=== PATIENT | male | born 1990 | race Caucasian/White ===

== ENCOUNTER 2016-10-29 17:58 | Emergency (ER) | payer SELFPAY ==
[2016-10-29 18:09] VITALS: BP 119/74
[2016-10-29] MEDS ORDERED: Metoclopramide 10 MG/2 ML SDV IVPUSH ONE (18:09)
[2016-10-29] MEDS ORDERED: HYDROmorphone 0.5 MG/0.5 ML Syringe IVPUSH ONE (18:09)
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
[2016-10-29] MEDS ORDERED: Sodium Chloride 0.9% 1,000 ML IV SCH (18:15)
--- NOTE | 2016-10-30 11:45 | CR ---
Left shoulder: Three views of the left shoulder were obtained. Comparison: No previous study. Distal clavicle is mildly elevated felt compatible with mild acromioclavicular separation. Glenohumeral joint is unremarkable. No acute fracture or other bony abnormality is seen. Impression: 1. Mild acromioclavicular separation. Diagnostic code #3
--- NOTE | 2016-10-30 11:45 | CR ---
Acromioclavicular joints: AP view of both acromioclavicular joints were obtained with and without weights. Acromioclavicular separation is seen on the left side. Right acromioclavicular joint is unremarkable. No fracture or other bony abnormality is seen. Impression: 1. Left acromioclavicular separation. Diagnostic code #3
== END 2016-10-29 19:40 | disposition home or self-care (01) ==
LOC: JD.ED 17:58
DX: S43.102A Unspecified dislocation of left acromioclavicular joint, initial encounter (principal); V86.59XA Driver of other special all-terrain or other off-road motor vehicle injured in nontraffic accident, initial encounter
CPT/HCPCS: 73030; 73050; 96361; 96374; 96375; 99284; J1170; J2765; J7040

== ENCOUNTER 2019-07-10 17:31 | Emergency (ER) | payer SELFPAY ==
[2019-07-10 17:49] VITALS: BP 128/95; PULSE 70
--- NOTE | 2019-07-10 17:59 | EDM.PDOC ---
ED HPI GENERAL MEDICAL PROBLEM - General Chief Complaint: Genitourinary Problem Stated Complaint: L TESTICLE PAIN Time Seen by Provider: 07/10/19 17:43 Source of Information: Reports: Patient History Limitations: Reports: No Limitations - History of Present Illness INITIAL COMMENTS - FREE TEXT/NARRATIVE: The patient presents with left testicle pain. He woke up with the pain this morning. He says the pain comes and goes with movement. He has not noticed any swelling. He has no fever or chills. He has no abdominal pain. He has no dysuria. He is sexually active and does not use protection. He did not notice any rashes. Onset: Gradual Duration: Hour(s): Location: Reports: Other (Left testicle) Quality: Reports: Sharp Severity: Moderate Improves with: Reports: None Worsens with: Reports: None Associated Symptoms: Reports: No Other Symptoms Left Pain Score (Numeric/FACES): 5 - Related Data Allergies Allergy/AdvReac Type Severity Reaction Status Date / Time No Known Allergies Allergy Verified 10/29/16 18:09 Home Meds: Home Meds . [No Known Home Meds] 07/10/19 [History] Past Medical History - Past Health History Medical/Surgical History: Denies Medical/Surgical History Social & Family History - Tobacco Use Smoking Status *Q: Current Every Day Smoker Years of Tobacco use: 5 Packs/Tins Daily: 0.1 - Caffeine Use Caffeine Use: Reports: None - Living Situation & Occupation Occupation: Employed ED ROS GENERAL - Review of Systems Review Of Systems: See Below Constitutional: Reports: No Symptoms HEENT: Reports: No Symptoms Respiratory: Reports: No Symptoms Cardiovascular: Reports: No Symptoms Endocrine: Reports: No Symptoms GI/Abdominal: Reports: No Symptoms : Reports: Other (Left testicle pain) Musculoskeletal: Reports: No Symptoms Skin: Reports: No Symptoms ED EXAM, GI/ABD - Physical Exam Exam: See Below Exam Limited By: No Limitations General Appearance: Alert, No Apparent Distress Ears: Normal External Exam Nose: Normal Inspection Head: Atraumatic, Normocephalic Neck: Normal Inspection Respiratory/Chest: No Respiratory Distress, Lungs Clear, Normal Breath Sounds Cardiovascular: Regular Rate, Rhythm, No Edema, No Murmur GI/Abdominal Exam: Soft, Non-Tender, No Organomegaly, No Mass (Male) Exam: Other (No swelling noted. He is uncircomcised. He has no rashes or lymphadenopathy. No hernias detected. He does have pain to his left testicle.) Back Exam: Normal Inspection Course - Vital Signs Last Recorded V/S: Last Vital Signs Temp 99.1 F 07/10/19 17:42 Pulse 70 07/10/19 17:42 Resp 18 07/10/19 17:42 BP 128/95 H 07/10/19 17:42 Pulse Ox 98 07/10/19 17:42 - Orders/Labs/Meds Orders: Active Orders 24 hr Category Date Time Status GC/CHLAMYDIA BY PCR [MOLEC] Stat Lab 07/10/19 18:38 Received RAPID PLASMA REAGIN,RPR [CHEM] Stat Lab 07/10/19 17:57 Received Labs: Laboratory Tests 07/10/19 Range/Units 18:38 Urine Color Yellow (Yellow) Urine Appearance Slt cloudy H (Clear) Urine pH 7.0 (5.0-8.0) Ur Specific [place] 1.025 (1.005-1.030) Urine Protein Negative (Negative) Urine Glucose (UA) Negative (Negative) Urine Ketones Negative (Negative) Urine Occult Blood Negative (Negative) Urine Nitrite Negative (Negative) Urine Bilirubin Negative (Negative) Urine Urobilinogen 0.2 (0.2-1.0) Ur Leukocyte Esterase Negative (Negative) - Re-Assessments/Exams Free Text/Narrative Re-Assessment/Exam: 07/10/19 17:59 I ordered an US, UA, GC/chlamydia and RPR. 07/10/19 19:19 His US shows blood vessels on the left side which are felt compatible with early varicocele. No additional abnormality is identified on testicular US exam. His UA shows no UTI. I will discharge him home on tylenol and motrin and some ice and follow up with Dr Joseph as needed. I will follow up with his other labs. Departure - Departure Time of Disposition: 19:25 Disposition: Home, Self-Care 01 Condition: Good Clinical Impression: Left varicocele - Discharge Information *PRESCRIPTION DRUG MONITORING PROGRAM REVIEWED*: Not Applicable *COPY OF PRESCRIPTION DRUG MONITORING REPORT IN PATIENT EAV: Not Applicable Referrals: Luis Joseph MD [Ordering Only Provider] - 2 Weeks Forms: ED Department Discharge Additional Instructions: Take tylenol or motrin for pain. Ice the area that hurts for 10 minutes 2 times per day for 2 days. Drink plenty of fluids. Follow up with Dr Joseph if you are not better within a couple of weeks. Please return if you are worse. Sepsis Event Note - Evaluation Sepsis Screening Result: No Definite Risk - Focused Exam Vital Signs: Vital Signs Temp Pulse Resp BP Pulse Ox 07/10/19 17:42 99.1 F 70 18 128/95 H 98 Date Exam was Performed: 07/10/19 Time Exam was Performed: 19:19 - My Orders Last 24 Hours: My Active Orders 07/10/19 17:57 RAPID PLASMA REAGIN,RPR [CHEM] Stat 07/10/19 18:38 GC/CHLAMYDIA BY PCR [MOLEC] Stat - Assessment/Plan Last 24 Hours: My Active Orders 07/10/19 17:57 RAPID PLASMA REAGIN,RPR [CHEM] Stat 07/10/19 18:38 GC/CHLAMYDIA BY PCR [MOLEC] Stat
--- NOTE | 2019-07-10 18:57 | US ---
Testicular ultrasound: Multiple real-time images of the testicles were obtained. Comparison: No prior testicular imaging. Both testicles show homogeneous ultrasound appearance. Both arterial and venous blood flow are seen within both testicles. No epididymal cyst is seen. Several blood vessels are noted on the left side which is felt compatible with early varicocele. Measurements: Right testicle: 4.4 x 3.2 x 1.9 cm Left testicle: 4.1 x 2.1 x 2.1 cm Impression: 1. Blood vessels on the left side which are felt compatible with early varicocele. 2. No additional abnormality is identified on testicular ultrasound exam. Diagnostic code #3 This report was dictated in [place] Standard Time
[2019-07-10 20:21] LABS: C. TRACHOMATIS BY PCR DETECTED; N. GONORRHOEAE BY PCR NOT DETECTED
== END 2019-07-10 19:32 | disposition home or self-care (01) ==
LOC: JD.ED 17:31
DX: I86.1 Scrotal varices (principal); A74.9 Chlamydial infection, unspecified; F17.210 Nicotine dependence, cigarettes, uncomplicated
CPT/HCPCS: 36415; 76870; 76870-26; 81003; 86592; 87491; 87591; 93975; 99282; 99284-25

== ENCOUNTER 2019-12-14 09:37 | Emergency (ER) | payer SELFPAY ==
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
--- NOTE | 2019-12-14 11:26 | CT ---
CT chest Technique: Multiple axial sections through the chest were obtained. Intravenous contrast was not utilized. Findings: Aorta shows no aneurysm. Mediastinum shows no hematoma. No pericardial thickening is seen. Visualized upper abdominal structures shows no discrete abnormality. Lungs are clear with no acute parenchymal change. No pneumothorax is seen. No pleural effusions are identified. Bone window settings were reviewed which shows no acute osseous finding. Impression: 1. Nothing acute is appreciated on noncontrast CT study of the chest. Diagnostic code #1 This report was dictated in MDT
[2019-12-14] MEDS ORDERED: Ibuprofen 800 MG Tab PO ONE (11:36)
[2019-12-14 11:50] VITALS: BP 134/98; PULSE 50
== END 2019-12-14 11:53 | disposition home or self-care (01) ==
LOC: JD.ED 09:37
DX: S20.211A Contusion of right front wall of thorax, initial encounter (principal); V86.56XA Driver of dirt bike or motor/cross bike injured in nontraffic accident, initial encounter
CPT/HCPCS: 71250; 99284; A9270; 99282

== ENCOUNTER → 2024-03-13 | Day surgery (SDC) | payer OTHER ==
[~2024-03-13] MED LIST: HYDROmorphone 0.5 MG/0.5 ML Syringe IVPUSH PRN; Lactated Ringers 1,000 ML IV ONE; Lactated Ringers 1,000 ML IV SCH; Midazolam 1 MG/ML 2 ML SDV ONE; Ondansetron 4 MG/2 ML SDV IVPUSH PRN; Potassium Chloride 10 MEQ in Premix Bag 1 BAG IV SCH; Propofol 200 MG/20 ML SDV ONE; Sodium Chloride 0.9% 10 ML Syringe FLUSH PRN; Sodium Chloride 0.9% 10 ML Syringe FLUSH SCH; Thiamine 100 MG in Sodium Chloride 0.9% 100 ML IV ONE; fentaNYL 100 MCG/2 ML SDV IVPUSH PRN; fentaNYL 250 MCG/5 ML SDV ONE
[2024-03-13 18:36] LABS: BASOPHILS ABSOLUTE AUTO 0.1 K/mm3 (0.0-0.2); BASOPHILS PERCENT AUTO 0.6 % (0.0-1.0); EOSINOPHILS ABSOLUTE AUTO 0.1 K/mm3 (0.0-0.4); EOSINOPHILS PERCENT AUTO 1.2 % (0.0-6.0); HEMATOCRIT 46.7 % (42.0-52.0); HEMOGLOBIN 16.1 gm/dl (14.0-18.0); IMMATURE GRAN ABSOLUTE AUTO 0.04 K/mm3 (0.00-0.05); IMMATURE GRAN PERCENT AUTO 0.4 % (0.0-0.4); LYMPHOCYTES ABSOLUTE AUTO 3.7 K/mm3 (1.0-4.8); LYMPHOCYTES PERCENT AUTO 37.6 % (24.0-44.0); MEAN CORPUSCULAR HEMOGLOBIN 32.7 pg (28.0-32.0); MEAN CORPUSCULAR HGB CONC 34.5 g/dl (32.0-36.0); MEAN CORPUSCULAR VOLUME 94.9 fl (83.0-99.0); MEAN PLATELET VOLUME 10.5 fl (9.4-12.4); MONOCYTES ABSOLUTE AUTO 0.8 K/mm3 (0.0-0.8); MONOCYTES PERCENT AUTO 8.3 % (0.0-8.0); NEUTROPHILS ABSOLUTE AUTO 5.1 K/mm3 (1.8-7.7); NEUTROPHILS PERCENT AUTO 51.9 % (41.0-71.0); PLATELET COUNT,PLT 309 K/mm3 (150-400); RED BLOOD CELL COUNT 4.92 M/mm3 (4.52-5.90); WHITE BLOOD CELL COUNT,WBC 9.78 K/mm3 (3.9-11.3)
[2024-03-13 18:52] LABS: INR 1.02; PROTHROMBIN TIME 10.8 SECONDS (9.7-12.0)
[2024-03-13 18:54] LABS: PTT,PARTIAL THROMBOPLSTIN TIME 22.8 SECONDS (21.7-31.4)
[2024-03-13 19:07] LABS: A/G RATIO 1.3 (1-2); ALANINE AMINOTRANSFERASE,ALT 39 U/L (16-63); ALBUMIN 3.7 g/dl (3.4-5.0); ALKALINE PHOSPHATASE 108 U/L (46-116); ANION GAP 15.8 (5-15); ASPARTATE AMNIOTRANSFERASE,AST 29 U/L (15-37); BILIRUBIN TOTAL 0.5 mg/dL (0.2-1.0); BLOOD UREA NITROGEN,BUN 7 mg/dL (7-18); C-REACTIVE PROTEIN <0.05 mg/dL (<0.30); CALCIUM 8.1 mg/dL (8.5-10.1); CARBON DIOXIDE,CO2 23 mEq/L (21-32); CHLORIDE,CL 106 mEq/L (98-107); ESTIMATED GFR 103 mL/min (>60); ETHANOL BLOOD MEDICAL 0.21 gm% (0.00); GLUCOSE RANDOM 105 mg/dL (70-99); LIPASE 60 U/L (16-77); MAGNESIUM 1.8 mg/dL (1.8-2.4); POTASSIUM,K 2.8 mEq/L (3.5-5.1); PROTEIN TOTAL,TP 6.5 g/dl (6.4-8.2); SODIUM,NA 142 mEq/L (136-145)
[2024-03-13] MEDS: Metoclopramide 10 MG/2 ML SDV IVPUSH ONE (19:21)
[2024-03-13] MEDS: HYDROmorphone 1 MG/ML Syringe IVPUSH ONE (19:21)
[2024-03-13] MEDS: Lactated Ringers 1,000 ML IV SCH (19:22)
[2024-03-13] MEDS: Diphtheria,Pertussis(Acell),Tetanus Vaccine 0.5 ML Syringe IM ONE (19:23)
[2024-03-13] MEDS: ceFAZolin 1 GM in Sodium Chloride 0.9% 50 ML IV ONE (19:26)
[2024-03-13] MEDS: Iopamidol 612 MG/ML 100 ML Bottle IVPUSH ONE (19:26)
[2024-03-13] MEDS: ceFAZolin 1 GM Vial IM ONE (19:32)
[2024-03-13] MEDS: VANCOmycin 1.75 GM/350 ML 1.75 GM in Premix Bag 1 BAG IV ONE (20:53)
[2024-03-13 21:21] VITALS: BP 149/89; PULSE 85
== END ==
LOC: JD.ED 18:11 → JD.SDS 19:22
PROVIDERS: ATTEND Orthopaedic Surgery
DX: S82.301B Unspecified fracture of lower end of right tibia, initial encounter for open fracture type I or II (principal); S82.831B Other fracture of upper and lower end of right fibula, initial encounter for open fracture type I or II; V89.2XXA Person injured in unspecified motor-vehicle accident, traffic, initial encounter; F10.920 Alcohol use, unspecified with intoxication, uncomplicated
CPT/HCPCS: 11044; 27788; 27825; 36415; 70450; 71045; 71260; 72125; 72128; 72131; 72170; 73590; 74177; 76000; 80053; 80307; 83605; 83690; 83735; 85025; 85610; 85730; 86140; 90471; 90715; 96365; 96375; 99291; G0390; J0690; J1170; J2250; J2704; J2765; J3010; J3372; J3490; J7120; Q9967; 01462; 99140; 99292